=== PATIENT | male | born 1965 | race Hispanic/Latino ===

== ENCOUNTER 2020-12-11 14:01 | Inpatient (IN) | payer OTHER ==
[~2020-12-11] VITALS: Ht 167.6 cm; Wt 83.9 kg
[2020-12-11] VITALS (8 sets, daily range): BP systolic 134–146; BP diastolic 81–93
[2020-12-11 14:35] LABS: BASOPHILS % (AUTO) 0.2 % (0.0-5.0); HEMATOCRIT 43.5 % (42-54); LYMPHOCYTES % (AUTO) 3.3 % (21.0-51.0); MEAN CORPUSCULAR HGB CONC 36.6 g/dL (32.0-36.0); MEAN CORPUSCULAR VOLUME 90.2 fL (79-99); MONOCYTES % (AUTO) 4.9 % (3.0-13.0); NEUTROPHILS % (AUTO) 90.7 % (40.0-77.0); PLATELET COUNT (AUTO) 188 K/uL (130-400); RED BLOOD CELL COUNT(AUTO) 4.82 MIL/uL (4.50-6.20); RED CELL DISTRIBUTION WIDTH 11.9 % (11.0-15.5); WHITE BLOOD COUNT (AUTO) 16.3 K/uL (4.8-10.8)
[2020-12-11] MEDS ORDERED: DEXAMETHASONE SOD PHOSPHATE 10MG/ML 1ML VIAL ONE (14:38)
[2020-12-11 14:48] LABS: INR 1.05 (0.85-1.15); PROTHROMBIN TIME 11.4 SEC (9.6-11.6)
[2020-12-11 14:51] LABS: ALBUMIN 2.7 g/dL (3.5-5.0); CREATININE 1.2 mg/dL (0.5-1.5); CRP QUANTITATIVE 38.8 mg/L (0.00-9.0); POTASSIUM 4.4 mmol/L (3.5-5.1); TOTAL PROTEIN, SERUM 7.1 g/dL (6.0-8.3)
[2020-12-11 14:56] LABS: ABG BASE EXCESS 1.4 mmol/L (-2.0-3.0); ABG HCO3 25.4 mmol/L (21.0-28.0); ABG OXYGEN SATURATION 92.2 % (95.0-99.0); ABG PCO2 38 mmHg (35-48)
[2020-12-11] MEDS ORDERED: CEFTRIAXONE SODIUM 1 GM ONE (14:58)
[2020-12-11] MEDS ORDERED: AZITHROMYCIN 250 MG TABLET PO ONE (14:58)
[2020-12-11] MEDS ORDERED: SODIUM CHLORIDE 0.9% 50 ML IV ONE (14:59)
[2020-12-11 15:01] LABS: B-TYPE NATRIURETIC PEPTIDE 17 pg/mL (0-100)
[2020-12-11 15:20] LABS: APPEARANCE,URINE Clear (CLEAR); BILIRUBIN,URINE Negative (NEGATIVE); COLOR,URINE Yellow (YELLOW); GLUCOSE, URINE (UA) >=1000 mg/dL (NEGATIVE); KETONES,URINE Negative (NEGATIVE); LEUKOCYTE ESTERASE ,URINE Negative (NEGATIVE); NITRATE,URINE Negative (NEGATIVE); OCCULT BLOOD,URINE Negative (NEGATIVE); PH,URINE 6.5 (5.0-8.0); PROTEIN,URINE Negative (NEGATIVE)
[2020-12-11] MEDS ORDERED: INSULIN HUMULIN R 100 UNIT/ML 3ML ONE (15:21)
[2020-12-11] MEDS ORDERED: SODIUM CHLORIDE 0.9% 500ML 500 ML IV ONE (15:21)
[2020-12-11] MEDS ORDERED: DOXYCYCLINE 100MG+NS 250ML IV SCH (16:00)
[2020-12-11] MEDS ORDERED: ERGOCALCIFEROL (VITAMIN D2) 50,000 UNIT CAPSULE PO ONE (16:00)
[2020-12-11] MEDS ORDERED: ACETAMINOPHEN 325 MG TAB PO PRN (16:00)
[2020-12-11] MEDS ORDERED: LACTULOSE 20 GM/30 ML UDCUP PO PRN (16:00)
[2020-12-11] MEDS ORDERED: ONDANSETRON HCL 4 MG/2 ML VIAL IV PRN (16:00)
[2020-12-11 16:21] LABS: BACTERIA,URINE Rare /HPF (None Seen); RBC,URINE 0-1 /HPF (0-1); SQUAMOUS EPITHELIAL CELL,UR Rare /HPF (0-2); WBC,URINE 0-1 /HPF (0-1)
[2020-12-11 16:32] LABS: HEMOGLOBIN A1C 8.1 % (4.0-6.0)
[2020-12-11] MEDS ORDERED: ALBUTEROL INHALER 90MCG/INH IH PRN (16:45)
[2020-12-11] MEDS ORDERED: ALBUTEROL INHALER 90MCG/INH IH ONE (16:46)
[2020-12-11 16:59] LABS: PARTIAL THROMBOPLASTIN TIME 22.1 SEC (26.3-35.5)
[2020-12-11] MEDS: CEFTRIAXONE SODIUM 1 GM IVP SCH (19:00)
[2020-12-11] MEDS: DEXAMETHASONE SOD PHOSPHATE 4 MG/ML 1ML VIAL IVP SCH (19:00)
[2020-12-11] MEDS: DOXYCYCLINE 100MG+NS 250ML 250 ML IV SCH (19:00)
[2020-12-11] MEDS: INSULIN HUMULIN R 100 UNIT/ML 3ML SQ SCH ×2 (19:00→22:38)
[2020-12-11] MEDS ORDERED: AMLO-257 PO (19:06)
[2020-12-11] MEDS: FAMOTIDINE 20MG TAB 20 MG TAB PO SCH (21:18)
[2020-12-12 00:15] VITALS: BP 140/81
[2020-12-12] MEDS: CEFTRIAXONE SODIUM 1 GM IVP SCH (03:02)
[2020-12-12 04:00] VITALS: BP 122/74
[2020-12-12 04:49] LABS: BASOPHILS % (AUTO) 0.2 % (0.0-5.0); LYMPHOCYTES % (AUTO) 4.2 % (21.0-51.0); MEAN CORPUSCULAR HEMOGLOBIN 31.6 pg (27.0-33.0); MEAN CORPUSCULAR HGB CONC 34.7 g/dL (32.0-36.0); MEAN CORPUSCULAR VOLUME 91.1 fL (79-99); MONOCYTES % (AUTO) 3.6 % (3.0-13.0); NEUTROPHILS % (AUTO) 91.1 % (40.0-77.0); PLATELET COUNT (AUTO) 200 K/uL (130-400); RED BLOOD CELL COUNT(AUTO) 4.72 MIL/uL (4.50-6.20); WHITE BLOOD COUNT (AUTO) 12.9 K/uL (4.8-10.8)
[2020-12-12 04:57] LABS: ALBUMIN 2.7 g/dL (3.5-5.0); BILIRUBIN,TOTAL 0.7 mg/dL (0.2-1.0); POTASSIUM 4.2 mmol/L (3.5-5.1); TOTAL PROTEIN, SERUM 7.1 g/dL (6.0-8.3)
[2020-12-12] MEDS: DOXYCYCLINE 100MG+NS 250ML 250 ML IV SCH (05:40)
[2020-12-12] MEDS: INSULIN HUMULIN R 100 UNIT/ML 3ML SQ SCH ×8 (05:59→20:28)
[2020-12-12] MEDS ORDERED: INSULIN GLARGINE 100 UNITS/ML 10 ML VIAL SQ SCH (07:00)
[2020-12-12 08:00] VITALS: BP 124/79
[2020-12-12] MEDS: FAMOTIDINE 20MG TAB 20 MG TAB PO SCH (08:15)
[2020-12-12] MEDS ORDERED: ENOXAPARIN SODIUM 40 MG/0.4 ML SYRINGE SQ SCH (09:00)
[2020-12-12] MEDS ORDERED: ZINC SULFATE 220 CAPSULE PO SCH (09:00)
[2020-12-12] MEDS ORDERED: ASCORBIC ACID 500 MG TAB PO SCH (09:00)
[2020-12-12] MEDS ORDERED: IOHEXOL 350 MG/ML 100ML INFUS..BTL IV ONE (11:01)
[2020-12-12] MEDS ORDERED: ENOXAPARIN SODIUM 1 MG/KG SQ SCH (11:30)
[2020-12-12] MEDS ORDERED: DOCUSATE SODIUM 100 MG CAP PO SCH (11:30)
[2020-12-12 12:00] VITALS: BP 122/74
[2020-12-12] MEDS ORDERED: PHARMACY COMMUNICATION MISC SCH ×3 (13:30→18:15)
[2020-12-12] MEDS: DEXAMETHASONE SOD PHOSPHATE 4 MG/ML 1ML VIAL IVP SCH (15:22)
[2020-12-12 16:10] LABS: BASOPHILS % (AUTO) 0.1 % (0.0-5.0); HEMATOCRIT 42.1 % (42-54); LYMPHOCYTES % (AUTO) 4.1 % (21.0-51.0); MEAN CORPUSCULAR HEMOGLOBIN 31.7 pg (27.0-33.0); MEAN CORPUSCULAR HGB CONC 34.9 g/dL (32.0-36.0); MEAN CORPUSCULAR VOLUME 90.7 fL (79-99); MONOCYTES % (AUTO) 3.4 % (3.0-13.0); NEUTROPHILS % (AUTO) 91.6 % (40.0-77.0); PLATELET COUNT (AUTO) 190 K/uL (130-400); RED BLOOD CELL COUNT(AUTO) 4.64 MIL/uL (4.50-6.20); WHITE BLOOD COUNT (AUTO) 15.5 K/uL (4.8-10.8)
[2020-12-12 17:03] VITALS: BP 124/76
[2020-12-12 20:00] VITALS: BP 107/68
[2020-12-12] MEDS ORDERED: REMDESIVIR (EUA) 520 200 MG in SODIUM CHLORIDE 0.9% 250 ML IV ONE (20:00)
[2020-12-12] MEDS ORDERED: COMPOUND IV REFRIGERATED 1 EACH IVSOLN MISC PRN (20:00)
[2020-12-12] MEDS: SENNOSIDES 8.6 MG TABLET PO SCH (20:02)
[2020-12-12] MEDS: ENOXAPARIN SODIUM 100 MG/1 ML SQ SCH (21:18)
[2020-12-13 03:40] LABS: BASOPHILS % (AUTO) 0.1 % (0.0-5.0); HEMATOCRIT 41.6 % (42-54); LYMPHOCYTES % (AUTO) 3.2 % (21.0-51.0); MEAN CORPUSCULAR HEMOGLOBIN 32.3 pg (27.0-33.0); MEAN CORPUSCULAR HGB CONC 36.1 g/dL (32.0-36.0); MEAN CORPUSCULAR VOLUME 89.7 fL (79-99); MONOCYTES % (AUTO) 3.7 % (3.0-13.0); NEUTROPHILS % (AUTO) 92.3 % (40.0-77.0); PLATELET COUNT (AUTO) 174 K/uL (130-400); RED BLOOD CELL COUNT(AUTO) 4.64 MIL/uL (4.50-6.20); RED CELL DISTRIBUTION WIDTH 11.9 % (11.0-15.5); WHITE BLOOD COUNT (AUTO) 17.3 K/uL (4.8-10.8)
[2020-12-13 04:00] VITALS: BP 119/80
[2020-12-13 04:02] LABS: ALBUMIN 2.5 g/dL (3.5-5.0); CREATININE 0.7 mg/dL (0.5-1.5); CRP QUANTITATIVE 10.5 mg/L (0.00-9.0); TOTAL PROTEIN, SERUM 6.5 g/dL (6.0-8.3)
[2020-12-13] MEDS: INSULIN HUMULIN R 100 UNIT/ML 3ML SQ SCH ×7 (05:38→21:08)
[2020-12-13 05:53] LABS: BILIRUBIN,DIRECT 0.2 mg/dL (0.0-0.3)
[2020-12-13] MEDS: REMDESIVIR LABS MISC SCH (07:34)
[2020-12-13 08:00] VITALS: BP 90/60
[2020-12-13] MEDS: ENOXAPARIN SODIUM 100 MG/1 ML SQ SCH ×2 (08:07→20:45)
[2020-12-13] MEDS: POLYETHYLENE GLYCOL 3350 17 GM POWD.PACK PO SCH (08:07)
[2020-12-13] MEDS: PANTOPRAZOLE SODIUM 40 MG TABLET.DR PO SCH (08:07)
[2020-12-13] MEDS: INSULIN GLARGINE 100 UNITS/ML 10 ML VIAL SQ SCH (08:13)
[2020-12-13] MEDS ORDERED: ENOXAPARIN SODIUM 1 MG/KG SQ SCH (09:00)
[2020-12-13 12:02] VITALS: BP 106/54
[2020-12-13 12:56] VITALS: BP 103/54
[2020-12-13] MEDS ORDERED: FLUTICASONE PROPIONATE 50MCG/SPRAY 16 GM BOTTLE EN PRN (15:00)
[2020-12-13 16:00] VITALS: BP 116/67
[2020-12-13] MEDS: DEXAMETHASONE SOD PHOSPHATE 4 MG/ML 1ML VIAL IVP SCH (16:43)
[2020-12-13 20:00] VITALS: BP 107/67
[2020-12-13] MEDS: REMDESIVIR (EUA) 520 100 MG in SODIUM CHLORIDE 0.9% 250 ML IV SCH (20:45)
[2020-12-13] MEDS: SENNOSIDES 8.6 MG TABLET PO SCH (20:45)
[2020-12-14] VITALS (7 sets, daily range): BP systolic 94–145; BP diastolic 43–88
[2020-12-14 03:41] LABS: BASOPHILS % (AUTO) 0.1 % (0.0-5.0); HEMATOCRIT 42.9 % (42-54); MEAN CORPUSCULAR HEMOGLOBIN 31.5 pg (27.0-33.0); MEAN CORPUSCULAR HGB CONC 35.4 g/dL (32.0-36.0); MONOCYTES % (AUTO) 1.9 % (3.0-13.0); NEUTROPHILS % (AUTO) 95.1 % (40.0-77.0); PLATELET COUNT (AUTO) 160 K/uL (130-400); RED BLOOD CELL COUNT(AUTO) 4.82 MIL/uL (4.50-6.20); RED CELL DISTRIBUTION WIDTH 11.8 % (11.0-15.5); WHITE BLOOD COUNT (AUTO) 20.2 K/uL (4.8-10.8)
[2020-12-14 03:53] LABS: ALBUMIN 2.2 g/dL (3.5-5.0); BILIRUBIN,TOTAL 1.2 mg/dL (0.2-1.0); CREATININE 0.8 mg/dL (0.5-1.5); CRP QUANTITATIVE 24.5 mg/L (0.00-9.0); POTASSIUM 4.3 mmol/L (3.5-5.1); TOTAL PROTEIN, SERUM 6.2 g/dL (6.0-8.3)
[2020-12-14] MEDS: REMDESIVIR LABS MISC SCH (06:00)
[2020-12-14] MEDS: INSULIN HUMULIN R 100 UNIT/ML 3ML SQ SCH ×7 (07:30→20:23)
[2020-12-14] MEDS: PANTOPRAZOLE SODIUM 40 MG TABLET.DR PO SCH (07:46)
[2020-12-14] MEDS: POLYETHYLENE GLYCOL 3350 17 GM POWD.PACK PO SCH (07:47)
[2020-12-14] MEDS: ENOXAPARIN SODIUM 100 MG/1 ML SQ SCH (07:47)
[2020-12-14] MEDS: INSULIN GLARGINE 100 UNITS/ML 10 ML VIAL SQ SCH (08:01)
[2020-12-14] MEDS: REMDESIVIR (EUA) 520 100 MG in SODIUM CHLORIDE 0.9% 250 ML IV SCH (14:59)
[2020-12-14] MEDS: DEXAMETHASONE SOD PHOSPHATE 4 MG/ML 1ML VIAL IVP SCH (17:10)
[2020-12-14] MEDS: ENOXAPARIN SODIUM 40 MG/0.4 ML SYRINGE SQ SCH (20:43)
[2020-12-14] MEDS: SENNOSIDES 8.6 MG TABLET PO SCH (20:47)
[2020-12-15 03:00] VITALS: BP 91/56
[2020-12-15 05:29] LABS: BASOPHILS % (AUTO) 0.1 % (0.0-5.0); HEMATOCRIT 42.7 % (42-54); MEAN CORPUSCULAR HEMOGLOBIN 32.8 pg (27.0-33.0); MEAN CORPUSCULAR HGB CONC 36.5 g/dL (32.0-36.0); MEAN CORPUSCULAR VOLUME 89.9 fL (79-99); MONOCYTES % (AUTO) 1.6 % (3.0-13.0); NEUTROPHILS % (AUTO) 95.4 % (40.0-77.0); PLATELET COUNT (AUTO) 133 K/uL (130-400); RED BLOOD CELL COUNT(AUTO) 4.75 MIL/uL (4.50-6.20); RED CELL DISTRIBUTION WIDTH 12.1 % (11.0-15.5); WHITE BLOOD COUNT (AUTO) 20.1 K/uL (4.8-10.8)
[2020-12-15 05:47] LABS: CREATININE 0.8 mg/dL (0.5-1.5); CRP QUANTITATIVE 74.6 mg/L (0.00-9.0); POTASSIUM 4.5 mmol/L (3.5-5.1)
[2020-12-15] MEDS: REMDESIVIR LABS MISC SCH (06:00)
[2020-12-15 08:00] VITALS: BP 80/49
[2020-12-15 08:07] LABS: ALBUMIN 2.2 g/dL (3.5-5.0); BILIRUBIN,DIRECT 0.2 mg/dL (0.0-0.3); BILIRUBIN,TOTAL 1.4 mg/dL (0.2-1.0); TOTAL PROTEIN, SERUM 5.9 g/dL (6.0-8.3)
[2020-12-15] MEDS: INSULIN GLARGINE 100 UNITS/ML 10 ML VIAL SQ SCH (08:44)
[2020-12-15] MEDS: PANTOPRAZOLE SODIUM 40 MG TABLET.DR PO SCH (08:44)
[2020-12-15] MEDS: ENOXAPARIN SODIUM 40 MG/0.4 ML SYRINGE SQ SCH ×2 (08:45→22:52)
[2020-12-15] MEDS: INSULIN HUMULIN R 100 UNIT/ML 3ML SQ SCH ×7 (08:51→22:54)
[2020-12-15] MEDS: POLYETHYLENE GLYCOL 3350 17 GM POWD.PACK PO SCH (09:00)
[2020-12-15] MEDS ORDERED: NOREPINEPHRINE 4MG/NS 250ML 250 ML IV SCH (11:15)
[2020-12-15] MEDS ORDERED: MIDODRINE HCL 5 MG TABLET ONE (11:45)
[2020-12-15 12:00] VITALS: BP 99/37
[2020-12-15] MEDS: MIDODRINE HCL 5 MG TABLET PO SCH ×2 (14:00→22:53)
[2020-12-15] MEDS: ALBUMIN (HUMAN) 5% 250 ML IV SCH ×3 (14:10→23:25)
[2020-12-15] MEDS ORDERED: ALBUMIN (HUMAN) 5% 250 ML IV SCH (15:45)
[2020-12-15 16:00] VITALS: BP 114/55
[2020-12-15] MEDS: REMDESIVIR (EUA) 520 100 MG in SODIUM CHLORIDE 0.9% 250 ML IV SCH (16:15)
[2020-12-15] MEDS: DEXAMETHASONE SOD PHOSPHATE 4 MG/ML 1ML VIAL IVP SCH (16:36)
[2020-12-15] MEDS ORDERED: MEROPENEM 500 MG VIAL IVP SCH (17:30)
[2020-12-15 19:26] VITALS: BP 136/92
[2020-12-15] MEDS: SENNOSIDES 8.6 MG TABLET PO SCH (22:52)
[2020-12-15] MEDS: MEROPENEM 500 MG VIAL IVP SCH (22:53)
[2020-12-16] VITALS: BP 104/63
[2020-12-16 04:00] VITALS: BP 114/72
[2020-12-16] MEDS: MEROPENEM 500 MG VIAL IVP SCH ×3 (05:58→22:45)
[2020-12-16] MEDS: MIDODRINE HCL 5 MG TABLET PO SCH ×3 (05:59→22:43)
[2020-12-16] MEDS: REMDESIVIR LABS MISC SCH (06:00)
[2020-12-16 06:36] LABS: BASOPHILS % (AUTO) 0.1 % (0.0-5.0); HEMATOCRIT 41.6 % (42-54); LYMPHOCYTES % (AUTO) 2.3 % (21.0-51.0); MEAN CORPUSCULAR HGB CONC 35.6 g/dL (32.0-36.0); MONOCYTES % (AUTO) 1.9 % (3.0-13.0); NEUTROPHILS % (AUTO) 94.9 % (40.0-77.0); PLATELET COUNT (AUTO) 126 K/uL (130-400); RED BLOOD CELL COUNT(AUTO) 4.62 MIL/uL (4.50-6.20); RED CELL DISTRIBUTION WIDTH 11.9 % (11.0-15.5); WHITE BLOOD COUNT (AUTO) 18.3 K/uL (4.8-10.8)
[2020-12-16] MEDS: INSULIN HUMULIN R 100 UNIT/ML 3ML SQ SCH ×7 (06:41→21:00)
[2020-12-16 06:46] LABS: CREATININE 0.7 mg/dL (0.5-1.5); POTASSIUM 4.1 mmol/L (3.5-5.1)
[2020-12-16 07:21] LABS: ALBUMIN 2.7 g/dL (3.5-5.0); BILIRUBIN,DIRECT 0.3 mg/dL (0.0-0.3); BILIRUBIN,TOTAL 1.7 mg/dL (0.2-1.0); TOTAL PROTEIN, SERUM 6.2 g/dL (6.0-8.3)
[2020-12-16 08:00] VITALS: BP 113/69
[2020-12-16] MEDS: PANTOPRAZOLE SODIUM 40 MG TABLET.DR PO SCH (08:39)
[2020-12-16] MEDS: ENOXAPARIN SODIUM 40 MG/0.4 ML SYRINGE SQ SCH ×2 (08:40→22:45)
[2020-12-16] MEDS: POLYETHYLENE GLYCOL 3350 17 GM POWD.PACK PO SCH (08:40)
[2020-12-16] MEDS: INSULIN GLARGINE 100 UNITS/ML 10 ML VIAL SQ SCH (08:43)
[2020-12-16 12:00] VITALS: BP 96/58
[2020-12-16] MEDS: DEXAMETHASONE SOD PHOSPHATE 4 MG/ML 1ML VIAL IVP SCH (15:22)
[2020-12-16] MEDS: REMDESIVIR (EUA) 520 100 MG in SODIUM CHLORIDE 0.9% 250 ML IV SCH (15:23)
[2020-12-16 16:00] VITALS: BP 107/57
[2020-12-16] MEDS: ACETAMINOPHEN 325 MG TAB PO PRN (16:39)
[2020-12-16 20:00] VITALS: BP 100/66
[2020-12-16] MEDS: SENNOSIDES 8.6 MG TABLET PO SCH (22:43)
[2020-12-17] VITALS: BP 114/70
[2020-12-17 04:00] VITALS: BP 125/76
[2020-12-17 05:56] LABS: BASOPHILS % (AUTO) 0.2 % (0.0-5.0); HEMATOCRIT 41.5 % (42-54); LYMPHOCYTES % (AUTO) 2.4 % (21.0-51.0); MEAN CORPUSCULAR HEMOGLOBIN 32.8 pg (27.0-33.0); MEAN CORPUSCULAR HGB CONC 36.9 g/dL (32.0-36.0); MEAN CORPUSCULAR VOLUME 89.1 fL (79-99); MONOCYTES % (AUTO) 2.5 % (3.0-13.0); PLATELET COUNT (AUTO) 128 K/uL (130-400); RED BLOOD CELL COUNT(AUTO) 4.66 MIL/uL (4.50-6.20); RED CELL DISTRIBUTION WIDTH 12.1 % (11.0-15.5); WHITE BLOOD COUNT (AUTO) 16.2 K/uL (4.8-10.8)
[2020-12-17] MEDS: REMDESIVIR LABS MISC SCH (06:00)
[2020-12-17 06:07] LABS: CREATININE 0.7 mg/dL (0.5-1.5); CRP QUANTITATIVE 57.6 mg/L (0.00-9.0); POTASSIUM 4.2 mmol/L (3.5-5.1)
[2020-12-17] MEDS: MEROPENEM 500 MG VIAL IVP SCH ×3 (06:28→22:56)
[2020-12-17] MEDS: MIDODRINE HCL 5 MG TABLET PO SCH ×4 (06:29→23:55)
[2020-12-17] MEDS: INSULIN HUMULIN R 100 UNIT/ML 3ML SQ SCH ×5 (06:47→23:49)
[2020-12-17 07:45] LABS: ALBUMIN 2.4 g/dL (3.5-5.0); BILIRUBIN,DIRECT 0.3 mg/dL (0.0-0.3); BILIRUBIN,TOTAL 1.5 mg/dL (0.2-1.0)
[2020-12-17 08:00] VITALS: BP 108/46
[2020-12-17] MEDS: PANTOPRAZOLE SODIUM 40 MG TABLET.DR PO SCH (08:19)
[2020-12-17] MEDS: POLYETHYLENE GLYCOL 3350 17 GM POWD.PACK PO SCH (08:20)
[2020-12-17] MEDS: INSULIN GLARGINE 100 UNITS/ML 10 ML VIAL SQ SCH (08:27)
[2020-12-17] MEDS: ENOXAPARIN SODIUM 40 MG/0.4 ML SYRINGE SQ SCH ×2 (08:28→22:55)
[2020-12-17] MEDS ORDERED: GUAIFENESIN-DM 200/20 MG 10 ML PO PRN (11:15)
[2020-12-17] MEDS ORDERED: DEXMEDETOMIDINE HCL 400 MCG in SODIUM CHLORIDE 0.9% 100 ML IV SCH (11:15)
[2020-12-17] MEDS ORDERED: MIDODRINE HCL 5 MG TABLET ONE (11:53)
[2020-12-17 12:00] VITALS: BP 104/46
[2020-12-17] MEDS ORDERED: COMPOUND IV REFRIGERATED 1 EACH IVSOLN MISC PRN (14:45)
[2020-12-17] MEDS: ACETAMINOPHEN 325 MG TAB PO PRN (15:43)
[2020-12-17 16:00] VITALS: BP 109/69
[2020-12-17 20:00] VITALS: BP 115/68
[2020-12-17] MEDS: SENNOSIDES 8.6 MG TABLET PO SCH (20:00)
[2020-12-17] MEDS: METHYLPREDNISOLONE SOD SUCC 125MG/2ML VIAL IVP SCH (22:55)
[2020-12-18] VITALS: BP 123/66
[2020-12-18 04:00] VITALS: BP 112/71
[2020-12-18 05:24] LABS: CREATININE 0.9 mg/dL (0.5-1.5); MAGNESIUM 2.2 mg/dL (1.80-2.40); POTASSIUM 4.4 mmol/L (3.5-5.1)
[2020-12-18] MEDS: MEROPENEM 500 MG VIAL IVP SCH ×3 (06:14→23:57)
[2020-12-18] MEDS: MIDODRINE HCL 5 MG TABLET PO SCH ×4 (06:14→23:57)
[2020-12-18] MEDS: INSULIN HUMULIN R 100 UNIT/ML 3ML SQ SCH ×6 (06:36→16:18)
[2020-12-18] MEDS ORDERED: INSULIN HUMULIN R 100 UNIT/ML 3ML SQ SCH (07:30)
[2020-12-18 08:00] VITALS: BP 108/63
[2020-12-18] MEDS: PANTOPRAZOLE SODIUM 40 MG TABLET.DR PO SCH (08:58)
[2020-12-18] MEDS: ENOXAPARIN SODIUM 40 MG/0.4 ML SYRINGE SQ SCH ×2 (08:58→23:57)
[2020-12-18] MEDS: POLYETHYLENE GLYCOL 3350 17 GM POWD.PACK PO SCH (08:58)
[2020-12-18] MEDS: METHYLPREDNISOLONE SOD SUCC 125MG/2ML VIAL IVP SCH ×2 (08:59→23:57)
[2020-12-18] MEDS ORDERED: METHYLPREDNISOLONE SOD SUCC 125MG/2ML VIAL IVP SCH (09:00)
[2020-12-18] MEDS: INSULIN GLARGINE 100 UNITS/ML 10 ML VIAL SQ SCH (09:00)
[2020-12-18 12:00] VITALS: BP 101/40
[2020-12-18] MEDS ORDERED: FUROSEMIDE 10 MG/ML 10ML VIAL IVP SCH (15:50)
[2020-12-18 16:00] VITALS: BP 121/69
[2020-12-18 20:00] VITALS: BP 125/78
[2020-12-19] VITALS: BP 113/62
[2020-12-19] MEDS: INSULIN HUMULIN R 100 UNIT/ML 3ML SQ SCH ×8 (00:02→20:40)
[2020-12-19] MEDS: SENNOSIDES 8.6 MG TABLET PO SCH ×2 (00:05→20:31)
[2020-12-19 04:00] VITALS: BP 122/66
[2020-12-19] MEDS: MEROPENEM 500 MG VIAL IVP SCH ×3 (05:52→21:01)
[2020-12-19] MEDS: MIDODRINE HCL 5 MG TABLET PO SCH ×3 (05:53→18:00)
[2020-12-19 06:34] LABS: ALBUMIN 2.4 g/dL (3.5-5.0); BILIRUBIN,TOTAL 1.2 mg/dL (0.2-1.0); CRP QUANTITATIVE 45.4 mg/L (0.00-9.0); POTASSIUM 4.7 mmol/L (3.5-5.1); TOTAL PROTEIN, SERUM 6.7 g/dL (6.0-8.3)
[2020-12-19 06:51] LABS: ABG BASE EXCESS 3.6 mmol/L (-2.0-3.0); ABG HCO3 28.2 mmol/L (21.0-28.0); ABG OXYGEN SATURATION 76.8 % (95.0-99.0); ABG PCO2 42 mmHg (35-48)
[2020-12-19 06:58] LABS: BASOPHILS % (AUTO) 0.2 % (0.0-5.0); HEMATOCRIT 46.2 % (42-54); LYMPHOCYTES % (AUTO) 3.4 % (21.0-51.0); MEAN CORPUSCULAR HEMOGLOBIN 32.5 pg (27.0-33.0); MEAN CORPUSCULAR HGB CONC 35.9 g/dL (32.0-36.0); MEAN CORPUSCULAR VOLUME 90.4 fL (79-99); MONOCYTES % (AUTO) 1.5 % (3.0-13.0); PLATELET COUNT (AUTO) 150 K/uL (130-400); RED BLOOD CELL COUNT(AUTO) 5.11 MIL/uL (4.50-6.20); RED CELL DISTRIBUTION WIDTH 12.4 % (11.0-15.5); WHITE BLOOD COUNT (AUTO) 20.6 K/uL (4.8-10.8)
[2020-12-19 07:09] LABS: ABG BASE EXCESS 5.5 mmol/L (-2.0-3.0); ABG OXYGEN SATURATION 82.9 % (95.0-99.0); ABG PCO2 43 mmHg (35-48)
[2020-12-19 08:00] VITALS: BP 121/68
[2020-12-19] MEDS: PANTOPRAZOLE SODIUM 40 MG TABLET.DR PO SCH (08:59)
[2020-12-19] MEDS: METHYLPREDNISOLONE SOD SUCC 125MG/2ML VIAL IVP SCH ×2 (08:59→20:36)
[2020-12-19] MEDS: POLYETHYLENE GLYCOL 3350 17 GM POWD.PACK PO SCH (09:00)
[2020-12-19] MEDS: ENOXAPARIN SODIUM 40 MG/0.4 ML SYRINGE SQ SCH ×2 (09:00→20:38)
[2020-12-19] MEDS ORDERED: INSULIN GLARGINE 100 UNITS/ML 10 ML VIAL SQ SCH (09:00)
[2020-12-19] MEDS: FUROSEMIDE 10 MG/ML 2ML VIAL IV SCH (14:11)
[2020-12-19 16:00] VITALS: BP 113/68
[2020-12-19 20:35] VITALS: BP 122/57
[2020-12-20 00:05] VITALS: BP 109/56
[2020-12-20] MEDS: FUROSEMIDE 10 MG/ML 2ML VIAL IV SCH ×2 (00:45→12:24)
[2020-12-20] MEDS: MIDODRINE HCL 5 MG TABLET PO SCH ×4 (00:51→17:23)
[2020-12-20 04:14] VITALS: BP 121/84
[2020-12-20] MEDS: MEROPENEM 500 MG VIAL IVP SCH ×3 (05:14→22:19)
[2020-12-20 05:19] LABS: ALBUMIN 2.6 g/dL (3.5-5.0); CREATININE 1.1 mg/dL (0.5-1.5); POTASSIUM 3.8 mmol/L (3.5-5.1); TOTAL PROTEIN, SERUM 7.2 g/dL (6.0-8.3)
[2020-12-20] MEDS: INSULIN HUMULIN R 100 UNIT/ML 3ML SQ SCH ×7 (07:15→21:47)
[2020-12-20 08:08] VITALS: BP 117/75
[2020-12-20] MEDS: PANTOPRAZOLE SODIUM 40 MG TABLET.DR PO SCH (10:02)
[2020-12-20] MEDS: POLYETHYLENE GLYCOL 3350 17 GM POWD.PACK PO SCH (10:02)
[2020-12-20] MEDS: METHYLPREDNISOLONE SOD SUCC 125MG/2ML VIAL IVP SCH ×2 (10:03→21:41)
[2020-12-20] MEDS: ENOXAPARIN SODIUM 40 MG/0.4 ML SYRINGE SQ SCH ×2 (10:03→21:45)
[2020-12-20] MEDS: INSULIN GLARGINE 100 UNITS/ML 10 ML VIAL SQ SCH (10:04)
[2020-12-20 12:07] VITALS: BP 108/73
[2020-12-20 16:56] VITALS: BP 103/67
[2020-12-20 20:00] VITALS: BP 110/74
[2020-12-20] MEDS: SENNOSIDES 8.6 MG TABLET PO SCH (21:25)
[2020-12-21] VITALS (41 sets, daily range): BP systolic 83–130; BP diastolic 58–93
[2020-12-21] MEDS: FUROSEMIDE 10 MG/ML 2ML VIAL IV SCH ×2 (01:12→13:06)
[2020-12-21] MEDS: MIDODRINE HCL 5 MG TABLET PO SCH ×4 (01:12→17:38)
[2020-12-21 05:32] LABS: ABG OXYGEN SATURATION 82.9 % (95.0-99.0); ABG PCO2 41 mmHg (35-48)
[2020-12-21] MEDS: MEROPENEM 500 MG VIAL IVP SCH ×3 (05:50→22:17)
[2020-12-21] MEDS: INSULIN HUMULIN R 100 UNIT/ML 3ML SQ SCH ×7 (06:45→21:47)
[2020-12-21] MEDS: POLYETHYLENE GLYCOL 3350 17 GM POWD.PACK PO SCH (08:01)
[2020-12-21] MEDS: PANTOPRAZOLE SODIUM 40 MG TABLET.DR PO SCH (08:01)
[2020-12-21] MEDS: METHYLPREDNISOLONE SOD SUCC 125MG/2ML VIAL IVP SCH ×2 (08:11→21:41)
[2020-12-21] MEDS: ENOXAPARIN SODIUM 40 MG/0.4 ML SYRINGE SQ SCH ×2 (08:12→21:43)
[2020-12-21] MEDS: INSULIN GLARGINE 100 UNITS/ML 10 ML VIAL SQ SCH (08:20)
[2020-12-21 08:31] LABS: BASOPHILS % (AUTO) 0.2 % (0.0-5.0); HEMATOCRIT 52.9 % (42-54); LYMPHOCYTES % (AUTO) 2.4 % (21.0-51.0); MEAN CORPUSCULAR HEMOGLOBIN 32.1 pg (27.0-33.0); MEAN CORPUSCULAR HGB CONC 35.2 g/dL (32.0-36.0); MEAN CORPUSCULAR VOLUME 91.4 fL (79-99); MONOCYTES % (AUTO) 2.2 % (3.0-13.0); NEUTROPHILS % (AUTO) 94.5 % (40.0-77.0); PLATELET COUNT (AUTO) 147 K/uL (130-400); RED BLOOD CELL COUNT(AUTO) 5.79 MIL/uL (4.50-6.20); RED CELL DISTRIBUTION WIDTH 12.7 % (11.0-15.5); WHITE BLOOD COUNT (AUTO) 18.7 K/uL (4.8-10.8)
[2020-12-21 08:49] LABS: ALBUMIN 2.5 g/dL (3.5-5.0); BILIRUBIN,TOTAL 1.6 mg/dL (0.2-1.0); CREATININE 1.2 mg/dL (0.5-1.5); CRP QUANTITATIVE 16.8 mg/L (0.00-9.0); TOTAL PROTEIN, SERUM 7.3 g/dL (6.0-8.3)
[2020-12-21] MEDS ORDERED: LORAZEPAM 2 MG/ML 1 ML VIAL IVP SCH (09:09)
[2020-12-21] MEDS ORDERED: FENTANYL CITRATE PF 0.05 MG/ML 1,000 MCG in SODIUM CHLORIDE 0.9% 100 ML IVPB STA (09:10)
[2020-12-21] MEDS ORDERED: DEXMEDETOMIDINE HCL 200 MCG in SODIUM CHLORIDE 0.9% 50 ML IV SCH (09:10)
[2020-12-21] MEDS ORDERED: LORAZEPAM 2 MG/ML 1 ML VIAL ONE (09:12)
[2020-12-21] MEDS ORDERED: NOREPINEPHRINE 4MG/NS 250ML 250 ML IV SCH (09:15)
[2020-12-21] MEDS: PROPOFOL 1000 MG/100 ML 100 ML IV SCH ×4 (09:48→23:13)
[2020-12-21] MEDS ORDERED: FENTANYL 2500MCG+NS 250ML 250 ML IV ONE ×2 (10:28→21:53)
[2020-12-21 10:37] LABS: ABG BASE EXCESS 5.4 mmol/L (-2.0-3.0); ABG OXYGEN SATURATION 93.9 % (95.0-99.0); ABG PCO2 48 mmHg (35-48)
[2020-12-21 11:43] LABS: INR 1.11 (0.85-1.15)
[2020-12-21 11:44] LABS: PARTIAL THROMBOPLASTIN TIME 24.5 SEC (26.3-35.5)
[2020-12-21] MEDS: LINEZOLID 600 MG/ISO-OSM 300 ML IV SCH ×2 (13:05→21:43)
[2020-12-21 15:02] LABS: ABG BASE EXCESS 4.7 mmol/L (-2.0-3.0); ABG HCO3 31.4 mmol/L (21.0-28.0); ABG OXYGEN SATURATION 90.1 % (95.0-99.0); ABG PCO2 55 mmHg (35-48)
[2020-12-21] MEDS: SENNOSIDES 8.6 MG TABLET PO SCH (21:41)
[2020-12-22] VITALS (57 sets, daily range): BP systolic 90–155; BP diastolic 57–101
[2020-12-22] MEDS: MIDODRINE HCL 5 MG TABLET PO SCH ×4 (01:43→17:30)
[2020-12-22] MEDS: FUROSEMIDE 10 MG/ML 2ML VIAL IV SCH ×2 (01:44→13:41)
[2020-12-22] MEDS: PROPOFOL 1000 MG/100 ML 100 ML IV SCH ×4 (02:00→18:35)
[2020-12-22 04:35] LABS: BASOPHILS % (AUTO) 0.1 % (0.0-5.0); HEMATOCRIT 47.3 % (42-54); LYMPHOCYTES % (AUTO) 3.5 % (21.0-51.0); MEAN CORPUSCULAR HEMOGLOBIN 32.8 pg (27.0-33.0); MEAN CORPUSCULAR HGB CONC 35.7 g/dL (32.0-36.0); MEAN CORPUSCULAR VOLUME 91.8 fL (79-99); MONOCYTES % (AUTO) 2.8 % (3.0-13.0); NEUTROPHILS % (AUTO) 92.7 % (40.0-77.0); PLATELET COUNT (AUTO) 123 K/uL (130-400); RED BLOOD CELL COUNT(AUTO) 5.15 MIL/uL (4.50-6.20); RED CELL DISTRIBUTION WIDTH 12.5 % (11.0-15.5); WHITE BLOOD COUNT (AUTO) 15.3 K/uL (4.8-10.8)
[2020-12-22 04:54] LABS: ALBUMIN 2.3 g/dL (3.5-5.0); BILIRUBIN,TOTAL 1.2 mg/dL (0.2-1.0); CREATININE 1.2 mg/dL (0.5-1.5); POTASSIUM 4.1 mmol/L (3.5-5.1); TOTAL PROTEIN, SERUM 6.6 g/dL (6.0-8.3)
[2020-12-22] MEDS: MEROPENEM 500 MG VIAL IVP SCH ×2 (05:15→13:41)
[2020-12-22] MEDS: INSULIN HUMULIN R 100 UNIT/ML 3ML SQ SCH ×6 (06:09→17:30)
[2020-12-22 06:31] LABS: ABG BASE EXCESS 7.4 mmol/L (-2.0-3.0); ABG HCO3 33.1 mmol/L (21.0-28.0); ABG OXYGEN SATURATION 88.5 % (95.0-99.0); ABG PCO2 50 mmHg (35-48)
[2020-12-22] MEDS: POLYETHYLENE GLYCOL 3350 17 GM POWD.PACK PO SCH (09:35)
[2020-12-22] MEDS: PANTOPRAZOLE SODIUM 40 MG TABLET.DR PO SCH (09:35)
[2020-12-22] MEDS: METHYLPREDNISOLONE SOD SUCC 125MG/2ML VIAL IVP SCH (09:35)
[2020-12-22] MEDS: INSULIN GLARGINE 100 UNITS/ML 10 ML VIAL SQ SCH (09:36)
[2020-12-22] MEDS: LINEZOLID 600 MG/ISO-OSM 300 ML IV SCH (09:37)
[2020-12-22] MEDS: ENOXAPARIN SODIUM 40 MG/0.4 ML SYRINGE SQ SCH (09:37)
[2020-12-23] VITALS (39 sets, daily range): BP systolic 91–145; BP diastolic 57–86
[2020-12-23] MEDS: SENNOSIDES 8.6 MG TABLET PO SCH ×2 (00:10→20:58)
[2020-12-23] MEDS: METHYLPREDNISOLONE SOD SUCC 125MG/2ML VIAL IVP SCH ×3 (00:10→20:58)
[2020-12-23] MEDS: MEROPENEM 500 MG VIAL IVP SCH ×4 (00:11→20:58)
[2020-12-23] MEDS: LINEZOLID 600 MG/ISO-OSM 300 ML IV SCH ×3 (00:11→20:57)
[2020-12-23] MEDS: MIDODRINE HCL 5 MG TABLET PO SCH ×5 (00:11→23:37)
[2020-12-23] MEDS: ENOXAPARIN SODIUM 40 MG/0.4 ML SYRINGE SQ SCH ×3 (00:11→20:58)
[2020-12-23] MEDS: FUROSEMIDE 10 MG/ML 2ML VIAL IV SCH ×3 (00:48→23:37)
[2020-12-23] MEDS: INSULIN HUMULIN R 100 UNIT/ML 3ML SQ SCH ×10 (01:08→23:41)
[2020-12-23] MEDS: PROPOFOL 1000 MG/100 ML 100 ML IV SCH ×3 (01:10→19:49)
[2020-12-23 05:04] LABS: CREATININE 1.2 mg/dL (0.5-1.5); POTASSIUM 3.9 mmol/L (3.5-5.1)
[2020-12-23 05:09] LABS: MAGNESIUM 2.8 mg/dL (1.80-2.40)
[2020-12-23] MEDS: FENTANYL 2500MCG+NS 250ML 250 ML IV SCH ×2 (05:52→23:39)
[2020-12-23 08:11] LABS: ABG BASE EXCESS 9.1 mmol/L (-2.0-3.0); ABG HCO3 35.9 mmol/L (21.0-28.0); ABG OXYGEN SATURATION 81.7 % (95.0-99.0); ABG PCO2 57 mmHg (35-48)
[2020-12-23] MEDS: PANTOPRAZOLE SODIUM 40 MG TABLET.DR PO SCH (08:35)
[2020-12-23] MEDS: POLYETHYLENE GLYCOL 3350 17 GM POWD.PACK PO SCH (08:35)
[2020-12-23] MEDS: INSULIN GLARGINE 100 UNITS/ML 10 ML VIAL SQ SCH (09:15)
[2020-12-24] VITALS (29 sets, daily range): BP systolic 97–141; BP diastolic 53–83
[2020-12-24] MEDS: PROPOFOL 1000 MG/100 ML 100 ML IV SCH ×4 (02:50→20:18)
[2020-12-24] MEDS: MEROPENEM 500 MG VIAL IVP SCH ×3 (05:02→21:16)
[2020-12-24] MEDS: MIDODRINE HCL 5 MG TABLET PO SCH ×3 (05:02→17:22)
[2020-12-24] MEDS: INSULIN HUMULIN R 100 UNIT/ML 3ML SQ SCH ×6 (05:04→18:45)
[2020-12-24 05:59] LABS: BASOPHILS % (AUTO) 0.1 % (0.0-5.0); HEMATOCRIT 45.7 % (42-54); LYMPHOCYTES % (AUTO) 1.8 % (21.0-51.0); MEAN CORPUSCULAR HEMOGLOBIN 32.4 pg (27.0-33.0); MEAN CORPUSCULAR HGB CONC 34.6 g/dL (32.0-36.0); MEAN CORPUSCULAR VOLUME 93.6 fL (79-99); MONOCYTES % (AUTO) 2.3 % (3.0-13.0); NEUTROPHILS % (AUTO) 95.3 % (40.0-77.0); PLATELET COUNT (AUTO) 71 K/uL (130-400); RED BLOOD CELL COUNT(AUTO) 4.88 MIL/uL (4.50-6.20); RED CELL DISTRIBUTION WIDTH 12.6 % (11.0-15.5); WHITE BLOOD COUNT (AUTO) 15.7 K/uL (4.8-10.8)
[2020-12-24 06:07] LABS: ABG BASE EXCESS 4.2 mmol/L (-2.0-3.0); ABG HCO3 30.5 mmol/L (21.0-28.0); ABG OXYGEN SATURATION 80.8 % (95.0-99.0); ABG PCO2 52 mmHg (35-48)
[2020-12-24 06:22] LABS: CREATININE 1.4 mg/dL (0.5-1.5); POTASSIUM 4.4 mmol/L (3.5-5.1)
[2020-12-24] MEDS: POLYETHYLENE GLYCOL 3350 17 GM POWD.PACK PO SCH (08:42)
[2020-12-24] MEDS: INSULIN GLARGINE 100 UNITS/ML 10 ML VIAL SQ SCH (08:49)
[2020-12-24] MEDS: PANTOPRAZOLE SODIUM 40 MG TABLET.DR PO SCH (08:54)
[2020-12-24] MEDS: METHYLPREDNISOLONE SOD SUCC 125MG/2ML VIAL IVP SCH ×2 (08:54→21:16)
[2020-12-24] MEDS: ENOXAPARIN SODIUM 40 MG/0.4 ML SYRINGE SQ SCH ×2 (08:55→21:00)
[2020-12-24] MEDS: LINEZOLID 600 MG/ISO-OSM 300 ML IV SCH ×2 (10:36→21:16)
[2020-12-24] MEDS: FUROSEMIDE 10 MG/ML 2ML VIAL IV SCH (12:39)
[2020-12-24] MEDS: FENTANYL 2500MCG+NS 250ML 250 ML IV SCH (17:21)
[2020-12-24] MEDS: SENNOSIDES 8.6 MG TABLET PO SCH (21:16)
[2020-12-25] VITALS (26 sets, daily range): BP systolic 100–173; BP diastolic 57–90
[2020-12-25] MEDS: INSULIN HUMULIN R 100 UNIT/ML 3ML SQ SCH ×8 (00:47→18:21)
[2020-12-25] MEDS: FUROSEMIDE 10 MG/ML 2ML VIAL IV SCH ×3 (00:50→20:16)
[2020-12-25] MEDS: MIDODRINE HCL 5 MG TABLET PO SCH ×5 (00:50→17:57)
[2020-12-25] MEDS: PROPOFOL 1000 MG/100 ML 100 ML IV SCH ×6 (01:18→20:15)
[2020-12-25 03:48] LABS: BASOPHILS % (AUTO) 0.1 % (0.0-5.0); HEMATOCRIT 44.1 % (42-54); LYMPHOCYTES % (AUTO) 1.6 % (21.0-51.0); MEAN CORPUSCULAR HEMOGLOBIN 32.1 pg (27.0-33.0); MEAN CORPUSCULAR VOLUME 94.4 fL (79-99); MONOCYTES % (AUTO) 1.6 % (3.0-13.0); NEUTROPHILS % (AUTO) 96.2 % (40.0-77.0); PLATELET COUNT (AUTO) 75 K/uL (130-400); RED BLOOD CELL COUNT(AUTO) 4.67 MIL/uL (4.50-6.20); RED CELL DISTRIBUTION WIDTH 12.4 % (11.0-15.5); WHITE BLOOD COUNT (AUTO) 15.8 K/uL (4.8-10.8)
[2020-12-25 03:51] LABS: ABG BASE EXCESS 8.1 mmol/L (-2.0-3.0); ABG HCO3 35.1 mmol/L (21.0-28.0); ABG OXYGEN SATURATION 83.1 % (95.0-99.0); ABG PCO2 58 mmHg (35-48)
[2020-12-25 04:02] LABS: CREATININE 1.1 mg/dL (0.5-1.5); CRP QUANTITATIVE 2.9 mg/L (0.00-9.0); POTASSIUM 4.7 mmol/L (3.5-5.1)
[2020-12-25] MEDS: MEROPENEM 500 MG VIAL IVP SCH ×3 (05:38→22:41)
[2020-12-25] MEDS: FENTANYL 2500MCG+NS 250ML 250 ML IV SCH ×2 (05:45→20:14)
[2020-12-25] MEDS: INSULIN GLARGINE 100 UNITS/ML 10 ML VIAL SQ SCH (08:19)
[2020-12-25] MEDS: METHYLPREDNISOLONE SOD SUCC 125MG/2ML VIAL IVP SCH ×2 (08:24→20:16)
[2020-12-25] MEDS: PANTOPRAZOLE SODIUM 40 MG TABLET.DR PO SCH (08:24)
[2020-12-25] MEDS: POLYETHYLENE GLYCOL 3350 17 GM POWD.PACK PO SCH (08:24)
[2020-12-25] MEDS: LINEZOLID 600 MG/ISO-OSM 300 ML IV SCH ×2 (08:24→20:12)
[2020-12-25] MEDS: ENOXAPARIN SODIUM 40 MG/0.4 ML SYRINGE SQ SCH ×2 (09:00→20:16)
[2020-12-25] MEDS: METOLAZONE 2.5 MG TABLET PO SCH (18:07)
[2020-12-25] MEDS: SENNOSIDES 8.6 MG TABLET PO SCH (20:16)
[2020-12-26] VITALS (24 sets, daily range): BP systolic 81–165; BP diastolic 41–89
[2020-12-26] MEDS: MIDODRINE HCL 5 MG TABLET PO SCH ×4 (00:58→18:23)
[2020-12-26] MEDS: INSULIN HUMULIN R 100 UNIT/ML 3ML SQ SCH ×8 (00:59→18:23)
[2020-12-26] MEDS: PROPOFOL 1000 MG/100 ML 100 ML IV SCH ×4 (01:02→15:02)
[2020-12-26] MEDS: MEROPENEM 500 MG VIAL IVP SCH ×3 (05:21→21:02)
[2020-12-26] MEDS: FUROSEMIDE 10 MG/ML 2ML VIAL IV SCH ×3 (05:21→20:23)
[2020-12-26 06:11] LABS: BASOPHILS % (AUTO) 0.1 % (0.0-5.0); CARBON DIOXIDE 44 mmol/L (21-32); CHLORIDE 95 mmol/L (101-111); CREATININE 0.9 mg/dL (0.5-1.5); GLOMERULAR FILTR. RATE CALC 93 mL/min (>60); GLUCOSE,RANDOM 184 mg/dL (70-105); HEMATOCRIT 43.3 % (42-54); LYMPHOCYTES % (AUTO) 2.5 % (21.0-51.0); MEAN CORPUSCULAR HEMOGLOBIN 32.3 pg (27.0-33.0); MEAN CORPUSCULAR HGB CONC 34.2 g/dL (32.0-36.0); MEAN CORPUSCULAR VOLUME 94.5 fL (79-99); MONOCYTES % (AUTO) 3.6 % (3.0-13.0); NEUTROPHILS % (AUTO) 93.2 % (40.0-77.0); PLATELET COUNT (AUTO) 60 K/uL (130-400); POTASSIUM 3.9 mmol/L (3.5-5.1); RED BLOOD CELL COUNT(AUTO) 4.58 MIL/uL (4.50-6.20); RED CELL DISTRIBUTION WIDTH 12.2 % (11.0-15.5); SODIUM SERUM 137 mmol/L (136-145); UREA NITROGEN, BLOOD 45 mg/dL (7-18); WHITE BLOOD COUNT (AUTO) 13.5 K/uL (4.8-10.8)
[2020-12-26 06:16] LABS: CRP QUANTITATIVE < 2.00 mg/L (0.00-9.0)
[2020-12-26 06:21] LABS: ABG BASE EXCESS 15.3 mmol/L (-2.0-3.0); ABG HCO3 41.9 mmol/L (21.0-28.0); ABG OXYGEN SATURATION 86.8 % (95.0-99.0); ABG PCO2 58 mmHg (35-48)
[2020-12-26] MEDS: INSULIN GLARGINE 100 UNITS/ML 10 ML VIAL SQ SCH ×2 (08:39→08:53)
[2020-12-26] MEDS: PANTOPRAZOLE SODIUM 40 MG TABLET.DR PO SCH (08:39)
[2020-12-26] MEDS: POLYETHYLENE GLYCOL 3350 17 GM POWD.PACK PO SCH (08:39)
[2020-12-26] MEDS: FENTANYL 2500MCG+NS 250ML 250 ML IV SCH (08:39)
[2020-12-26] MEDS: METOLAZONE 2.5 MG TABLET PO SCH (08:39)
[2020-12-26] MEDS: METHYLPREDNISOLONE SOD SUCC 125MG/2ML VIAL IVP SCH ×2 (08:40→20:26)
[2020-12-26] MEDS: ENOXAPARIN SODIUM 40 MG/0.4 ML SYRINGE SQ SCH ×2 (08:40→20:26)
[2020-12-26] MEDS: LINEZOLID 600 MG/ISO-OSM 300 ML IV SCH ×2 (08:51→20:27)
[2020-12-26 13:35] LABS: INR 0.99 (0.85-1.15); PROTHROMBIN TIME 10.8 SEC (9.6-11.6)
[2020-12-26] MEDS: SENNOSIDES 8.6 MG TABLET PO SCH (20:23)
[2020-12-27] VITALS (39 sets, daily range): BP systolic 94–156; BP diastolic 48–87
[2020-12-27] MEDS: INSULIN HUMULIN R 100 UNIT/ML 3ML SQ SCH ×8 (01:06→18:00)
[2020-12-27] MEDS: PROPOFOL 1000 MG/100 ML 100 ML IV SCH ×5 (01:07→21:05)
[2020-12-27] MEDS: FUROSEMIDE 10 MG/ML 2ML VIAL IV SCH ×3 (04:57→21:12)
[2020-12-27] MEDS: MEROPENEM 500 MG VIAL IVP SCH ×3 (04:57→21:18)
[2020-12-27 05:26] LABS: HEMATOCRIT 40.7 % (42-54); LYMPHOCYTES % (AUTO) 1.9 % (21.0-51.0); MEAN CORPUSCULAR HEMOGLOBIN 32.4 pg (27.0-33.0); MEAN CORPUSCULAR HGB CONC 35.1 g/dL (32.0-36.0); MEAN CORPUSCULAR VOLUME 92.3 fL (79-99); MONOCYTES % (AUTO) 3.2 % (3.0-13.0); NEUTROPHILS % (AUTO) 94.3 % (40.0-77.0); PLATELET COUNT (AUTO) 58 K/uL (130-400); RED BLOOD CELL COUNT(AUTO) 4.41 MIL/uL (4.50-6.20); RED CELL DISTRIBUTION WIDTH 11.9 % (11.0-15.5); WHITE BLOOD COUNT (AUTO) 13.5 K/uL (4.8-10.8)
[2020-12-27 05:41] LABS: CREATININE 0.9 mg/dL (0.5-1.5); POTASSIUM 3.4 mmol/L (3.5-5.1)
[2020-12-27] MEDS: POTASSIUM CHLORIDE 10% ELIXIR 20 MEQ/15 ML UDCUP PO PRN ×2 (05:48→08:31)
[2020-12-27] MEDS: MIDODRINE HCL 5 MG TABLET PO SCH ×5 (06:00→21:11)
[2020-12-27] MEDS: METOLAZONE 2.5 MG TABLET PO SCH (08:31)
[2020-12-27] MEDS: METHYLPREDNISOLONE SOD SUCC 125MG/2ML VIAL IVP SCH ×2 (08:31→21:12)
[2020-12-27] MEDS: PANTOPRAZOLE SODIUM 40 MG TABLET.DR PO SCH (08:31)
[2020-12-27] MEDS: POLYETHYLENE GLYCOL 3350 17 GM POWD.PACK PO SCH (08:31)
[2020-12-27] MEDS: ENOXAPARIN SODIUM 40 MG/0.4 ML SYRINGE SQ SCH (08:32)
[2020-12-27] MEDS: INSULIN GLARGINE 100 UNITS/ML 10 ML VIAL SQ SCH (08:34)
[2020-12-27] MEDS: POTASSIUM CHLORIDE 20MEQ/100ML 100 ML IV PRN (08:35)
[2020-12-27] MEDS: LINEZOLID 600 MG/ISO-OSM 300 ML IV SCH ×2 (08:35→21:21)
[2020-12-27] MEDS ORDERED: FENTANYL 2500MCG+NS 250ML 250 ML IV ONE (13:29)
[2020-12-27] MEDS ORDERED: PHARMACY COMMUNICATION MISC SCH (14:00)
[2020-12-27] MEDS: SENNOSIDES 8.6 MG TABLET PO SCH (20:00)
[2020-12-28] VITALS (81 sets, daily range): BP systolic 108–147; BP diastolic 54–87
[2020-12-28] MEDS: MIDODRINE HCL 5 MG TABLET PO SCH ×4 (01:02→17:06)
[2020-12-28] MEDS: INSULIN HUMULIN R 100 UNIT/ML 3ML SQ SCH ×8 (01:03→17:38)
[2020-12-28] MEDS: PROPOFOL 1000 MG/100 ML 100 ML IV SCH ×5 (01:10→17:59)
[2020-12-28 03:58] LABS: ABG BASE EXCESS 19.2 mmol/L (-2.0-3.0); ABG HCO3 45.3 mmol/L (21.0-28.0); ABG OXYGEN SATURATION 80.1 % (95.0-99.0); ABG PCO2 55 mmHg (35-48)
[2020-12-28] MEDS: MEROPENEM 500 MG VIAL IVP SCH ×3 (05:34→20:35)
[2020-12-28] MEDS: FUROSEMIDE 10 MG/ML 2ML VIAL IV SCH ×3 (05:34→20:35)
[2020-12-28] MEDS: FENTANYL 2500MCG+NS 250ML 250 ML IV SCH ×2 (05:36→20:22)
[2020-12-28 07:30] LABS: HEMATOCRIT 40.1 % (42-54); MEAN CORPUSCULAR HEMOGLOBIN 32.9 pg (27.0-33.0); MEAN CORPUSCULAR HGB CONC 35.9 g/dL (32.0-36.0); MEAN CORPUSCULAR VOLUME 91.6 fL (79-99); PLATELET COUNT (AUTO) 47 K/uL (130-400); RED BLOOD CELL COUNT(AUTO) 4.38 MIL/uL (4.50-6.20); RED CELL DISTRIBUTION WIDTH 11.9 % (11.0-15.5); WHITE BLOOD COUNT (AUTO) 13.6 K/uL (4.8-10.8)
[2020-12-28] MEDS: POLYETHYLENE GLYCOL 3350 17 GM POWD.PACK PO SCH (08:07)
[2020-12-28] MEDS: METOLAZONE 2.5 MG TABLET PO SCH (08:07)
[2020-12-28] MEDS: METHYLPREDNISOLONE SOD SUCC 125MG/2ML VIAL IVP SCH ×2 (08:07→20:35)
[2020-12-28] MEDS: PANTOPRAZOLE SODIUM 40 MG TABLET.DR PO SCH (08:07)
[2020-12-28] MEDS: LINEZOLID 600 MG/ISO-OSM 300 ML IV SCH (08:08)
[2020-12-28] MEDS: POTASSIUM CHLORIDE 10% ELIXIR 20 MEQ/15 ML UDCUP PO PRN (08:10)
[2020-12-28] MEDS: INSULIN GLARGINE 100 UNITS/ML 10 ML VIAL SQ SCH (08:10)
[2020-12-28 08:27] LABS: BAND NEUTROPHILS % (MANUAL) 1 % (0-2); LYMPHOCYTES % (MANUAL) 8 % (22-44); MAN.DIFF COMMENT-IMPRESSION MANUAL DIFFERENTIAL; MONOCYTES % (MANUAL) 4 % (2-9); SEGMENTED NEUTROPHILS % 87 % (40-70)
[2020-12-28 08:28] LABS: PLATELET MORPHOLOGY COMMENT INCREASED
[2020-12-28] MEDS: POTASSIUM CHLORIDE 20MEQ/100ML 100 ML IV PRN ×2 (08:33→12:17)
[2020-12-28] MEDS: POTASSIUM CHLORIDE 10% ELIXIR 20 MEQ/15 ML UDCUP PO SCH ×2 (10:12→16:39)
[2020-12-28] MEDS ORDERED: PHARMACY COMMUNICATION MISC SCH (11:15)
[2020-12-28] MEDS: SENNOSIDES 8.6 MG TABLET PO SCH (20:35)
[2020-12-29] VITALS (60 sets, daily range): BP systolic 88–150; BP diastolic 33–85
[2020-12-29] MEDS: MIDODRINE HCL 5 MG TABLET PO SCH ×4 (01:00→17:16)
[2020-12-29] MEDS: INSULIN HUMULIN R 100 UNIT/ML 3ML SQ SCH ×8 (01:23→17:24)
[2020-12-29] MEDS: PROPOFOL 1000 MG/100 ML 100 ML IV SCH ×5 (01:25→18:23)
[2020-12-29] MEDS: MEROPENEM 500 MG VIAL IVP SCH ×2 (05:12→13:52)
[2020-12-29] MEDS: FUROSEMIDE 10 MG/ML 2ML VIAL IV SCH ×3 (05:12→21:24)
[2020-12-29 07:59] LABS: HEMATOCRIT 42.5 % (42-54); MEAN CORPUSCULAR HEMOGLOBIN 31.4 pg (27.0-33.0); MEAN CORPUSCULAR HGB CONC 33.9 g/dL (32.0-36.0); MEAN CORPUSCULAR VOLUME 92.8 fL (79-99); PLATELET COUNT (AUTO) 36 K/uL (130-400); RED BLOOD CELL COUNT(AUTO) 4.58 MIL/uL (4.50-6.20); RED CELL DISTRIBUTION WIDTH 11.9 % (11.0-15.5); WHITE BLOOD COUNT (AUTO) 10.6 K/uL (4.8-10.8)
[2020-12-29] MEDS: METHYLPREDNISOLONE SOD SUCC 125MG/2ML VIAL IVP SCH ×2 (08:06→21:24)
[2020-12-29] MEDS: POLYETHYLENE GLYCOL 3350 17 GM POWD.PACK PO SCH (08:06)
[2020-12-29] MEDS: METOLAZONE 2.5 MG TABLET PO SCH (08:06)
[2020-12-29] MEDS: POTASSIUM CHLORIDE 10% ELIXIR 20 MEQ/15 ML UDCUP PO SCH ×2 (08:06→17:16)
[2020-12-29] MEDS: PANTOPRAZOLE SODIUM 40 MG TABLET.DR PO SCH (08:06)
[2020-12-29] MEDS: INSULIN GLARGINE 100 UNITS/ML 10 ML VIAL SQ SCH (08:08)
[2020-12-29 08:41] LABS: CREATININE 1.1 mg/dL (0.5-1.5); POTASSIUM 3.2 mmol/L (3.5-5.1)
[2020-12-29 09:17] LABS: BAND NEUTROPHILS % (MANUAL) 2 % (0-2); LYMPHOCYTES % (MANUAL) 3 % (22-44); MAN.DIFF COMMENT-IMPRESSION MANUAL DIFFERENTIAL; MONOCYTES % (MANUAL) 6 % (2-9); SEGMENTED NEUTROPHILS % 89 % (40-70)
[2020-12-29] MEDS: POTASSIUM CHLORIDE 20MEQ/100ML 100 ML IV PRN (10:18)
[2020-12-29] MEDS: FENTANYL 2500MCG+NS 250ML 250 ML IV SCH (12:24)
[2020-12-29] MEDS: SENNOSIDES 8.6 MG TABLET PO SCH (20:00)
[2020-12-30] VITALS (36 sets, daily range): BP systolic 79–144; BP diastolic 45–98
[2020-12-30] MEDS: PROPOFOL 1000 MG/100 ML 100 ML IV SCH ×4 (00:47→23:58)
[2020-12-30] MEDS: FENTANYL 2500MCG+NS 250ML 250 ML IV SCH ×2 (05:07→23:59)
[2020-12-30] MEDS: FUROSEMIDE 10 MG/ML 2ML VIAL IV SCH ×3 (05:09→20:43)
[2020-12-30] MEDS: MIDODRINE HCL 5 MG TABLET PO SCH ×4 (05:10→17:24)
[2020-12-30] MEDS: INSULIN HUMULIN R 100 UNIT/ML 3ML SQ SCH ×10 (05:40→23:42)
[2020-12-30 07:46] LABS: ABG BASE EXCESS 21.8 mmol/L (-2.0-3.0); ABG HCO3 47.2 mmol/L (21.0-28.0); ABG OXYGEN SATURATION 84.1 % (95.0-99.0); ABG PCO2 52 mmHg (35-48)
[2020-12-30] MEDS: METHYLPREDNISOLONE SOD SUCC 125MG/2ML VIAL IVP SCH ×2 (09:09→20:43)
[2020-12-30] MEDS: PANTOPRAZOLE SODIUM 40 MG TABLET.DR PO SCH (09:09)
[2020-12-30] MEDS: METOLAZONE 2.5 MG TABLET PO SCH (09:10)
[2020-12-30] MEDS: POTASSIUM CHLORIDE 10% ELIXIR 20 MEQ/15 ML UDCUP PO SCH ×2 (09:10→17:24)
[2020-12-30] MEDS: POLYETHYLENE GLYCOL 3350 17 GM POWD.PACK PO SCH (09:10)
[2020-12-30] MEDS: INSULIN GLARGINE 100 UNITS/ML 10 ML VIAL SQ SCH ×2 (09:19→09:21)
[2020-12-30 12:42] LABS: HEMATOCRIT 45.2 % (42-54); MEAN CORPUSCULAR HEMOGLOBIN 32.8 pg (27.0-33.0); NUCLEATED RED BLOOD CELLS 0.2 % (0.0-0.19); RED BLOOD CELL COUNT(AUTO) 4.81 MIL/uL (4.50-6.20); WHITE BLOOD COUNT (AUTO) 13.2 K/uL (4.8-10.8)
[2020-12-30] MEDS: SENNOSIDES 8.6 MG TABLET PO SCH (19:48)
[2020-12-31] VITALS (56 sets, daily range): BP systolic 88–150; BP diastolic 47–101
[2020-12-31] MEDS: PROPOFOL 1000 MG/100 ML 100 ML IV SCH ×4 (04:26→22:13)
[2020-12-31] MEDS: FUROSEMIDE 10 MG/ML 2ML VIAL IV SCH (04:27)
[2020-12-31 04:44] LABS: BASOPHILS % (AUTO) 0.2 % (0.0-5.0); HEMATOCRIT 43.4 % (42-54); LYMPHOCYTES % (AUTO) 3.7 % (21.0-51.0); MEAN CORPUSCULAR HGB CONC 34.3 g/dL (32.0-36.0); MEAN CORPUSCULAR VOLUME 93.3 fL (79-99); MONOCYTES % (AUTO) 3.6 % (3.0-13.0); NEUTROPHILS % (AUTO) 91.3 % (40.0-77.0); NUCLEATED RED BLOOD CELLS 0.6 % (0.0-0.19); PLATELET COUNT (AUTO) 32 K/uL (130-400); RED BLOOD CELL COUNT(AUTO) 4.65 MIL/uL (4.50-6.20); WHITE BLOOD COUNT (AUTO) 13.1 K/uL (4.8-10.8)
[2020-12-31 04:50] LABS: CREATININE 1.1 mg/dL (0.5-1.5)
[2020-12-31] MEDS: MIDODRINE HCL 5 MG TABLET PO SCH ×4 (05:19→18:43)
[2020-12-31] MEDS: POTASSIUM CHLORIDE 20MEQ/100ML 100 ML IV PRN ×2 (05:25→06:21)
[2020-12-31] MEDS: INSULIN HUMULIN R 100 UNIT/ML 3ML SQ SCH ×6 (05:34→18:45)
[2020-12-31] MEDS: POTASSIUM CHLORIDE 10% ELIXIR 20 MEQ/15 ML UDCUP PO SCH ×2 (08:00→18:43)
[2020-12-31] MEDS: PANTOPRAZOLE SODIUM 40 MG TABLET.DR PO SCH (10:01)
[2020-12-31] MEDS: METHYLPREDNISOLONE SOD SUCC 125MG/2ML VIAL IVP SCH ×2 (10:01→21:50)
[2020-12-31] MEDS: POLYETHYLENE GLYCOL 3350 17 GM POWD.PACK PO SCH (10:01)
[2020-12-31] MEDS: INSULIN GLARGINE 100 UNITS/ML 10 ML VIAL SQ SCH (10:02)
[2020-12-31 11:31] LABS: ABG BASE EXCESS 20.2 mmol/L (-2.0-3.0); ABG OXYGEN SATURATION 83.2 % (95.0-99.0); ABG PCO2 54 mmHg (35-48)
[2020-12-31 15:57] LABS: CREATININE 1.1 mg/dL (0.5-1.5); POTASSIUM 3.8 mmol/L (3.5-5.1)
[2020-12-31] MEDS ORDERED: PHARMACY COMMUNICATION MISC SCH (16:15)
[2020-12-31] MEDS: SENNOSIDES 8.6 MG TABLET PO SCH (20:00)
[2020-12-31] MEDS: FENTANYL 2500MCG+NS 250ML 250 ML IV SCH (21:54)
[2021-01-01] VITALS (58 sets, daily range): BP systolic 93–174; BP diastolic 50–105
[2021-01-01] MEDS: MIDODRINE HCL 5 MG TABLET PO SCH ×5 (00:43→23:01)
[2021-01-01] MEDS: INSULIN HUMULIN R 100 UNIT/ML 3ML SQ SCH ×8 (00:45→18:45)
[2021-01-01] MEDS: PROPOFOL 1000 MG/100 ML 100 ML IV SCH ×6 (01:30→21:42)
[2021-01-01 04:42] LABS: ABG BASE EXCESS 14.2 mmol/L (-2.0-3.0); ABG OXYGEN SATURATION 83.2 % (95.0-99.0); ABG PCO2 48 mmHg (35-48)
[2021-01-01 07:27] LABS: BASOPHILS % (AUTO) 0.4 % (0.0-5.0); HEMATOCRIT 42.9 % (42-54); LYMPHOCYTES % (AUTO) 5.2 % (21.0-51.0); MEAN CORPUSCULAR HEMOGLOBIN 32.7 pg (27.0-33.0); MEAN CORPUSCULAR HGB CONC 34.5 g/dL (32.0-36.0); MEAN CORPUSCULAR VOLUME 94.9 fL (79-99); MONOCYTES % (AUTO) 3.1 % (3.0-13.0); NEUTROPHILS % (AUTO) 87.3 % (40.0-77.0); NUCLEATED RED BLOOD CELLS 0.5 % (0.0-0.19); PLATELET COUNT (AUTO) 39 K/uL (130-400); RED BLOOD CELL COUNT(AUTO) 4.52 MIL/uL (4.50-6.20); RED CELL DISTRIBUTION WIDTH 12.2 % (11.0-15.5); WHITE BLOOD COUNT (AUTO) 14.7 K/uL (4.8-10.8)
[2021-01-01 08:08] LABS: CRP QUANTITATIVE 34.1 mg/L (0.00-9.0); POTASSIUM 3.6 mmol/L (3.5-5.1)
[2021-01-01 08:09] LABS: CREATININE 1.2 mg/dL (0.5-1.5); MAGNESIUM 3.2 mg/dL (1.80-2.40)
[2021-01-01] MEDS ORDERED: CISATRACURIUM BESYLATE 2 MG/ML 10ML VIAL IVP SCH (08:45)
[2021-01-01] MEDS ORDERED: CISATRACURIUM BESYLATE 100 MG in SODIUM CHLORIDE 0.9% 100 ML IV SCH (08:46)
[2021-01-01] MEDS: POLYETHYLENE GLYCOL 3350 17 GM POWD.PACK PO SCH (09:00)
[2021-01-01] MEDS: DEXMEDETOMIDINE HCL 1,000 MCG in SODIUM CHLORIDE 0.9% 250 ML IV SCH ×2 (09:10→16:06)
[2021-01-01] MEDS: POTASSIUM CHLORIDE 10% ELIXIR 20 MEQ/15 ML UDCUP PO SCH ×2 (09:14→17:00)
[2021-01-01] MEDS: POTASSIUM CHLORIDE 20MEQ/100ML 100 ML IV PRN (09:14)
[2021-01-01] MEDS: PANTOPRAZOLE SODIUM 40 MG TABLET.DR PO SCH (09:15)
[2021-01-01] MEDS: METHYLPREDNISOLONE SOD SUCC 125MG/2ML VIAL IVP SCH ×2 (09:15→21:41)
[2021-01-01] MEDS: INSULIN GLARGINE 100 UNITS/ML 10 ML VIAL SQ SCH (09:19)
[2021-01-01] MEDS: FENTANYL 2500MCG+NS 250ML 250 ML IV SCH (16:04)
[2021-01-01] MEDS: CISATRACURIUM BESYLATE IV SCH (16:05)
[2021-01-01] MEDS: SODIUM CHLORIDE 0.9% IV SCH (16:05)
[2021-01-01] MEDS: ARGATROBAN 250 MG/2.5 ML VIAL 250 MG in SODIUM CHLORIDE 0.9% 250 ML IV PRN (16:43)
[2021-01-01] MEDS: SENNOSIDES 8.6 MG TABLET PO SCH (20:00)
[2021-01-02] VITALS (59 sets, daily range): BP systolic 75–149; BP diastolic 41–102
[2021-01-02] MEDS: PROPOFOL 1000 MG/100 ML 100 ML IV SCH ×5 (00:56→20:17)
[2021-01-02] MEDS: FENTANYL 2500MCG+NS 250ML 250 ML IV SCH ×2 (00:58→14:41)
[2021-01-02] MEDS: MIDODRINE HCL 5 MG TABLET PO SCH ×5 (05:23→23:54)
[2021-01-02] MEDS: INSULIN HUMULIN R 100 UNIT/ML 3ML SQ SCH ×10 (06:00→23:58)
[2021-01-02 06:11] LABS: BASOPHILS % (AUTO) 0.3 % (0.0-5.0); EOSINOPHILS % (AUTO) 0.6 % (0.0-8.0); HEMATOCRIT 39.8 % (42-54); LYMPHOCYTES % (AUTO) 8.4 % (21.0-51.0); MEAN CORPUSCULAR HGB CONC 33.4 g/dL (32.0-36.0); MEAN CORPUSCULAR VOLUME 95.9 fL (79-99); MONOCYTES % (AUTO) 2.1 % (3.0-13.0); NEUTROPHILS % (AUTO) 83.5 % (40.0-77.0); NUCLEATED RED BLOOD CELLS 0.8 % (0.0-0.19); PLATELET COUNT (AUTO) 26 K/uL (130-400); RED BLOOD CELL COUNT(AUTO) 4.15 MIL/uL (4.50-6.20); RED CELL DISTRIBUTION WIDTH 11.9 % (11.0-15.5); WHITE BLOOD COUNT (AUTO) 9.7 K/uL (4.8-10.8)
[2021-01-02 06:22] LABS: CREATININE 0.9 mg/dL (0.5-1.5); CRP QUANTITATIVE 62.4 mg/L (0.00-9.0); POTASSIUM 3.3 mmol/L (3.5-5.1)
[2021-01-02 06:49] LABS: ABG HCO3 37.4 mmol/L (21.0-28.0); ABG OXYGEN SATURATION 81.9 % (95.0-99.0); ABG PCO2 50 mmHg (35-48)
[2021-01-02] MEDS: POLYETHYLENE GLYCOL 3350 17 GM POWD.PACK PO SCH (09:00)
[2021-01-02] MEDS: PANTOPRAZOLE SODIUM 40 MG TABLET.DR PO SCH (09:41)
[2021-01-02] MEDS: METHYLPREDNISOLONE SOD SUCC 125MG/2ML VIAL IVP SCH (09:41)
[2021-01-02] MEDS: POTASSIUM CHLORIDE 10% ELIXIR 20 MEQ/15 ML UDCUP PO SCH ×2 (09:41→18:00)
[2021-01-02] MEDS: FUROSEMIDE 10 MG/ML 2ML VIAL IV SCH (09:42)
[2021-01-02] MEDS: POTASSIUM CHLORIDE 20MEQ/100ML 100 ML IV PRN (09:43)
[2021-01-02] MEDS: INSULIN GLARGINE 100 UNITS/ML 10 ML VIAL SQ SCH (12:00)
[2021-01-02] MEDS ORDERED: PHARMACY COMMUNICATION MISC SCH (17:45)
[2021-01-02] MEDS: ARGATROBAN 250 MG/2.5 ML VIAL 250 MG in SODIUM CHLORIDE 0.9% 250 ML IV PRN (18:01)
[2021-01-02] MEDS: DEXAMETHASONE SOD PHOSPHATE 4 MG/ML 1ML VIAL IVP SCH (19:48)
[2021-01-02] MEDS: SENNOSIDES 8.6 MG TABLET PO SCH (19:48)
[2021-01-02] MEDS: FONDAPARINUX SODIUM 7.5 MG/0.6 ML SQ SCH (22:00)
[2021-01-02] MEDS: CISATRACURIUM BESYLATE IV SCH ×2 (23:05→23:06)
[2021-01-02] MEDS: SODIUM CHLORIDE 0.9% IV SCH ×2 (23:05→23:06)
[2021-01-03] VITALS (43 sets, daily range): BP systolic 88–164; BP diastolic 46–96
[2021-01-03] MEDS: PROPOFOL 1000 MG/100 ML 100 ML IV SCH ×5 (01:02→21:55)
[2021-01-03] MEDS: MIDODRINE HCL 5 MG TABLET PO SCH ×3 (05:32→18:00)
[2021-01-03 05:33] LABS: BASOPHILS % (AUTO) 0.2 % (0.0-5.0); EOSINOPHILS % (AUTO) 1.1 % (0.0-8.0); HEMATOCRIT 40.4 % (42-54); LYMPHOCYTES % (AUTO) 5.9 % (21.0-51.0); MEAN CORPUSCULAR HEMOGLOBIN 32.4 pg (27.0-33.0); MEAN CORPUSCULAR HGB CONC 33.2 g/dL (32.0-36.0); MEAN CORPUSCULAR VOLUME 97.6 fL (79-99); MONOCYTES % (AUTO) 1.7 % (3.0-13.0); NEUTROPHILS % (AUTO) 88.5 % (40.0-77.0); NUCLEATED RED BLOOD CELLS 1.4 % (0.0-0.19); PLATELET COUNT (AUTO) 24 K/uL (130-400); RED BLOOD CELL COUNT(AUTO) 4.14 MIL/uL (4.50-6.20); RED CELL DISTRIBUTION WIDTH 12.3 % (11.0-15.5); WHITE BLOOD COUNT (AUTO) 10.3 K/uL (4.8-10.8)
[2021-01-03] MEDS: INSULIN HUMULIN R 100 UNIT/ML 3ML SQ SCH ×6 (05:33→18:15)
[2021-01-03 05:53] LABS: CRP QUANTITATIVE 60.2 mg/L (0.00-9.0); MAGNESIUM 2.7 mg/dL (1.80-2.40); POTASSIUM 4.3 mmol/L (3.5-5.1)
[2021-01-03] MEDS: FENTANYL 2500MCG+NS 250ML 250 ML IV SCH (06:54)
[2021-01-03 06:55] LABS: ABG BASE EXCESS 6.3 mmol/L (-2.0-3.0); ABG HCO3 36.9 mmol/L (21.0-28.0); ABG OXYGEN SATURATION 73.4 % (95.0-99.0); ABG PCO2 83 mmHg (35-48)
[2021-01-03] MEDS: POTASSIUM CHLORIDE 10% ELIXIR 20 MEQ/15 ML UDCUP PO SCH ×2 (08:00→17:00)
[2021-01-03] MEDS: POLYETHYLENE GLYCOL 3350 17 GM POWD.PACK PO SCH (09:00)
[2021-01-03] MEDS: DEXAMETHASONE SOD PHOSPHATE 4 MG/ML 1ML VIAL IVP SCH (09:02)
[2021-01-03] MEDS: FUROSEMIDE 10 MG/ML 2ML VIAL IV SCH (09:03)
[2021-01-03] MEDS: PANTOPRAZOLE SODIUM 40 MG TABLET.DR PO SCH (09:03)
[2021-01-03] MEDS: INSULIN GLARGINE 100 UNITS/ML 10 ML VIAL SQ SCH (09:03)
[2021-01-03 09:17] LABS: ABG BASE EXCESS 6.8 mmol/L (-2.0-3.0); ABG HCO3 34.4 mmol/L (21.0-28.0); ABG OXYGEN SATURATION 71.3 % (95.0-99.0); ABG PCO2 61 mmHg (35-48)
[2021-01-03] MEDS: SENNOSIDES 8.6 MG TABLET PO SCH (20:42)
[2021-01-03] MEDS: FONDAPARINUX SODIUM 7.5 MG/0.6 ML SQ SCH (21:07)
[2021-01-04] VITALS (39 sets, daily range): BP systolic 68–168; BP diastolic 35–102
[2021-01-04] MEDS: MIDODRINE HCL 5 MG TABLET PO SCH ×4 (01:06→18:00)
[2021-01-04] MEDS: INSULIN HUMULIN R 100 UNIT/ML 3ML SQ SCH ×8 (01:15→18:00)
[2021-01-04] MEDS: PROPOFOL 1000 MG/100 ML 100 ML IV SCH ×5 (01:48→22:02)
[2021-01-04] MEDS ORDERED: FENTANYL 2500MCG+NS 250ML 250 ML IV ONE ×2 (02:59→20:25)
[2021-01-04 04:49] LABS: CREATININE 1.1 mg/dL (0.5-1.5); POTASSIUM 4.5 mmol/L (3.5-5.1)
[2021-01-04 04:55] LABS: BASOPHILS % (AUTO) 0.3 % (0.0-5.0); EOSINOPHILS % (AUTO) 0.5 % (0.0-8.0); HEMATOCRIT 40.8 % (42-54); LYMPHOCYTES % (AUTO) 4.8 % (21.0-51.0); MEAN CORPUSCULAR HGB CONC 32.4 g/dL (32.0-36.0); MEAN CORPUSCULAR VOLUME 98.8 fL (79-99); MONOCYTES % (AUTO) 1.2 % (3.0-13.0); NEUTROPHILS % (AUTO) 90.8 % (40.0-77.0); NUCLEATED RED BLOOD CELLS 5.1 % (0.0-0.19); PLATELET COUNT (AUTO) 22 K/uL (130-400); RED BLOOD CELL COUNT(AUTO) 4.13 MIL/uL (4.50-6.20); RED CELL DISTRIBUTION WIDTH 12.4 % (11.0-15.5); WHITE BLOOD COUNT (AUTO) 9.9 K/uL (4.8-10.8)
[2021-01-04] MEDS: CISATRACURIUM BESYLATE IV SCH (05:57)
[2021-01-04] MEDS: SODIUM CHLORIDE 0.9% IV SCH (05:57)
[2021-01-04 07:32] LABS: ABG HCO3 34.9 mmol/L (21.0-28.0); ABG OXYGEN SATURATION 71.9 % (95.0-99.0); ABG PCO2 70 mmHg (35-48)
[2021-01-04] MEDS: POTASSIUM CHLORIDE 10% ELIXIR 20 MEQ/15 ML UDCUP PO SCH ×2 (08:00→16:56)
[2021-01-04] MEDS: DEXAMETHASONE SOD PHOSPHATE 4 MG/ML 1ML VIAL IVP SCH (08:59)
[2021-01-04] MEDS: PANTOPRAZOLE SODIUM 40 MG TABLET.DR PO SCH (09:00)
[2021-01-04] MEDS: POLYETHYLENE GLYCOL 3350 17 GM POWD.PACK PO SCH (09:00)
[2021-01-04] MEDS: FUROSEMIDE 10 MG/ML 2ML VIAL IV SCH (09:00)
[2021-01-04] MEDS: INSULIN GLARGINE 100 UNITS/ML 10 ML VIAL SQ SCH (09:23)
[2021-01-04] MEDS: PANTOPRAZOLE 40 MG/VIAL IVP SCH ×2 (11:19→21:11)
[2021-01-04] MEDS: MEROPENEM 1 GM VIAL IVP SCH ×2 (15:11→21:11)
[2021-01-04] MEDS: SENNOSIDES 8.6 MG TABLET PO SCH (20:00)
[2021-01-04] MEDS: FONDAPARINUX SODIUM 7.5 MG/0.6 ML SQ SCH (21:12)
[2021-01-05] VITALS (98 sets, daily range): BP systolic 51–220; BP diastolic 26–119
[2021-01-05] MEDS: MIDODRINE HCL 5 MG TABLET PO SCH ×5 (00:34→23:36)
[2021-01-05] MEDS: INSULIN HUMULIN R 100 UNIT/ML 3ML SQ SCH ×8 (00:36→18:00)
[2021-01-05] MEDS: PROPOFOL 1000 MG/100 ML 100 ML IV SCH ×3 (02:26→16:26)
[2021-01-05] MEDS ORDERED: NOREPINEPHRINE 4MG/NS 250ML 250 ML IV ONE ×2 (03:21→16:21)
[2021-01-05 05:30] LABS: BASOPHILS % (AUTO) 0.4 % (0.0-5.0); EOSINOPHILS % (AUTO) 0.8 % (0.0-8.0); HEMATOCRIT 36.8 % (42-54); MEAN CORPUSCULAR HGB CONC 34.8 g/dL (32.0-36.0); MEAN CORPUSCULAR VOLUME 97.9 fL (79-99); MONOCYTES % (AUTO) 1.2 % (3.0-13.0); NEUTROPHILS % (AUTO) 90.9 % (40.0-77.0); NUCLEATED RED BLOOD CELLS 7.4 % (0.0-0.19); PLATELET COUNT (AUTO) 22 K/uL (130-400); RED BLOOD CELL COUNT(AUTO) 3.76 MIL/uL (4.50-6.20); RED CELL DISTRIBUTION WIDTH 13.1 % (11.0-15.5); WHITE BLOOD COUNT (AUTO) 10.2 K/uL (4.8-10.8)
[2021-01-05 05:51] LABS: ALBUMIN 1.4 g/dL (3.5-5.0); BILIRUBIN,TOTAL 2.5 mg/dL (0.2-1.0); CREATININE 1.2 mg/dL (0.5-1.5); MAGNESIUM 2.7 mg/dL (1.80-2.40); POTASSIUM 5.3 mmol/L (3.5-5.1); TOTAL PROTEIN, SERUM 4.7 g/dL (6.0-8.3)
[2021-01-05] MEDS: MEROPENEM 1 GM VIAL IVP SCH ×3 (06:21→20:57)
[2021-01-05 06:56] LABS: ABG BASE EXCESS 9.3 mmol/L (-2.0-3.0); ABG OXYGEN SATURATION 76.8 % (95.0-99.0); ABG PCO2 51 mmHg (35-48)
[2021-01-05] MEDS: POTASSIUM CHLORIDE 10% ELIXIR 20 MEQ/15 ML UDCUP PO SCH ×2 (08:00→17:00)
[2021-01-05] MEDS ORDERED: DEXMEDETOMIDINE HCL 1,000 MCG in SODIUM CHLORIDE 0.9% 250 ML IV SCH (08:15)
[2021-01-05] MEDS ORDERED: FENTANYL 2500MCG+NS 250ML 250 ML IV SCH (08:15)
[2021-01-05] MEDS ORDERED: SODIUM POLYSTYRENE SULFONATE 15 GM/60 ML ML NG SCH (08:45)
[2021-01-05] MEDS: PANTOPRAZOLE 40 MG/VIAL IVP SCH ×2 (08:47→20:57)
[2021-01-05] MEDS: FUROSEMIDE 10 MG/ML 2ML VIAL IV SCH (08:47)
[2021-01-05] MEDS: POLYETHYLENE GLYCOL 3350 17 GM POWD.PACK PO SCH (08:47)
[2021-01-05] MEDS: DEXAMETHASONE SOD PHOSPHATE 4 MG/ML 1ML VIAL IVP SCH (08:47)
[2021-01-05] MEDS: SUCRALFATE 1 GM TABLET NG SCH ×3 (09:01→20:56)
[2021-01-05] MEDS: INSULIN GLARGINE 100 UNITS/ML 10 ML VIAL SQ SCH (09:08)
[2021-01-05] MEDS: CISATRACURIUM BESYLATE IV SCH (10:22)
[2021-01-05] MEDS: SODIUM CHLORIDE 0.9% IV SCH (10:22)
[2021-01-05 12:17] LABS: HEMATOCRIT 37.8 % (42-54)
[2021-01-05 12:28] LABS: CREATININE 1.2 mg/dL (0.5-1.5); POTASSIUM 3.9 mmol/L (3.5-5.1)
[2021-01-05] MEDS ORDERED: ALBUMIN (HUMAN) 25% 50 ML IV SCH ×2 (16:00→21:00)
[2021-01-05] MEDS: NOREPINEPHRINE 4MG/NS 250ML 250 ML IV SCH (18:15)
[2021-01-05 19:48] LABS: HEMATOCRIT 38.1 % (42-54)
[2021-01-05] MEDS: SENNOSIDES 8.6 MG TABLET PO SCH (20:56)
[2021-01-05] MEDS ORDERED: FUROSEMIDE 10 MG/ML 2ML VIAL IV SCH ×2 (21:00)
[2021-01-05] MEDS: FONDAPARINUX SODIUM 7.5 MG/0.6 ML SQ SCH (22:21)
[2021-01-06] VITALS (13 sets, daily range): BP systolic 57–136; BP diastolic 27–84
[2021-01-06] MEDS: INSULIN HUMULIN R 100 UNIT/ML 3ML SQ SCH ×2 (00:55→00:56)
[2021-01-06] MEDS: PROPOFOL 1000 MG/100 ML 100 ML IV SCH (01:33)
[2021-01-06] MEDS: NOREPINEPHRINE 4MG/NS 250ML 250 ML IV SCH (04:44)
[2021-01-06 05:36] LABS: BASOPHILS % (AUTO) 0.4 % (0.0-5.0); HEMATOCRIT 34.1 % (42-54); LYMPHOCYTES % (AUTO) 24.7 % (21.0-51.0); MEAN CORPUSCULAR HGB CONC 32.3 g/dL (32.0-36.0); MEAN CORPUSCULAR VOLUME 105.2 fL (79-99); MONOCYTES % (AUTO) 2.5 % (3.0-13.0); NEUTROPHILS % (AUTO) 70.7 % (40.0-77.0); PLATELET COUNT (AUTO) 12 K/uL (130-400); RED BLOOD CELL COUNT(AUTO) 3.24 MIL/uL (4.50-6.20); RED CELL DISTRIBUTION WIDTH 14.2 % (11.0-15.5); WHITE BLOOD COUNT (AUTO) 5.3 K/uL (4.8-10.8)
[2021-01-06 05:44] LABS: CRP QUANTITATIVE 115.9 mg/L (0.00-9.0); TROPONIN I 0.12 ng/mL (0.00-0.06)
[2021-01-06 05:56] LABS: ALBUMIN 1.5 g/dL (3.5-5.0); BILIRUBIN,TOTAL 2.1 mg/dL (0.2-1.0); CREATININE 1.6 mg/dL (0.5-1.5); POTASSIUM 5.4 mmol/L (3.5-5.1); TOTAL PROTEIN, SERUM 4.1 g/dL (6.0-8.3)
== END 2021-01-06 06:54 | disposition expired | DRG 207 ==
LOC: EDH 14:01 → EDHIP 14:02 → 2AH 17:55 → 2BH 12-15 20:42 → 2AH 12-19 12:46 → 2BH 12-21 11:44
PROVIDERS: ADMIT Internal Medicine; ATTEND Internal Medicine
PROC: XW13325 Transfusion of Convalescent Plasma (Nonautologous) into Peripheral Vein, Percutaneous Approach, New Technology Group 5 (ICD-10-PCS; 2020-12-11)
PROC: XW033E5 Introduction of Remdesivir Anti-infective into Peripheral Vein, Percutaneous Approach, New Technology Group 5 (ICD-10-PCS; 2020-12-12)
PROC: 5A0955A Assistance with Respiratory Ventilation, Greater than 96 Consecutive Hours, High Flow/Velocity Cannula (ICD-10-PCS; 2020-12-12)
PROC: 5A09357 Assistance with Respiratory Ventilation, Less than 24 Consecutive Hours, Continuous Positive Airway Pressure (ICD-10-PCS; 2020-12-18)
PROC: 5A09357 Assistance with Respiratory Ventilation, Less than 24 Consecutive Hours, Continuous Positive Airway Pressure (ICD-10-PCS; 2020-12-19)
PROC: 5A09357 Assistance with Respiratory Ventilation, Less than 24 Consecutive Hours, Continuous Positive Airway Pressure (ICD-10-PCS; 2020-12-20)
PROC: 5A1955Z Respiratory Ventilation, Greater than 96 Consecutive Hours (ICD-10-PCS; principal; 2020-12-21)
PROC: 0BH17EZ Insertion of Endotracheal Airway into Trachea, Via Natural or Artificial Opening (ICD-10-PCS; 2020-12-21)
PROC: 5A09357 Assistance with Respiratory Ventilation, Less than 24 Consecutive Hours, Continuous Positive Airway Pressure (ICD-10-PCS; 2020-12-21)
PROC: 02H633Z Insertion of Infusion Device into Right Atrium, Percutaneous Approach (ICD-10-PCS; 2020-12-21)
DX: U07.1 COVID-19 (principal); J12.82 Pneumonia due to coronavirus disease 2019; J80 Acute respiratory distress syndrome; E87.2 Acidosis; E87.1 Hypo-osmolality and hyponatremia; N39.0 Urinary tract infection, site not specified; Z16.24 Resistance to multiple antibiotics; D68.59 Other primary thrombophilia; Z16.12 Extended spectrum beta lactamase (ESBL) resistance; E11.65 Type 2 diabetes mellitus with hyperglycemia; B96.1 Klebsiella pneumoniae [K. pneumoniae] as the cause of diseases classified elsewhere; B96.20 Unspecified Escherichia coli [E. coli] as the cause of diseases classified elsewhere; E66.9 Obesity, unspecified; I10 Essential (primary) hypertension; E11.649 Type 2 diabetes mellitus with hypoglycemia without coma; D69.6 Thrombocytopenia, unspecified; E66.01 Morbid (severe) obesity due to excess calories; E78.5 Hyperlipidemia, unspecified; F17.200 Nicotine dependence, unspecified, uncomplicated; R13.12 Dysphagia, oropharyngeal phase; T38.0X5A Adverse effect of glucocorticoids and synthetic analogues, initial encounter; Y92.89 Other specified places as the place of occurrence of the external cause; Z66 Do not resuscitate; Z74.01 Bed confinement status; Z79.4 Long term (current) use of insulin; Z93.1 Gastrostomy status; Z68.29 Body mass index [BMI] 29.0-29.9, adult
CPT/HCPCS: 31500; 36415; 36430; 36600; 71045; 71275; 80048; 80053; 80076; 81001; 82248; 82435; 82550; 82728; 82803; 82947; 82948; 83036; 83605; 83615; 83735; 83874; 83880; 84132; 84145; 84295; 84478; 84484; 85014; 85018; 85025; 85027; 85378; 85610; 85730; 86022; 86140; 86850; 86900; 86901; 86927; 87040; 87077; 87088; 87186; 87426; 93005; 93306; 93356; 93970; 94002; 94003; 94660; C1751; C1894; C8924; C9113; G0378; J0696; J0883; J1100; J1650; J1652; J1815; J1940; J2020; J2060; J2185; J2704; J2930; J3010; J3480; J3490; J7040; J7050; P9045; P9047; Q9967; U0003